=== PATIENT | female | born 1985 | race Hispanic/Latino ===

== ENCOUNTER 2020-07-26 12:52 | Outpatient (CLI) | payer OTHER | END 2020-07-26 12:53 | disposition home or self-care (01) | LOC: CSHRAD 12:52 | PROVIDERS: ATTEND Family Medicine | DX: U07.1 COVID-19 (principal); J12.82 Pneumonia due to coronavirus disease 2019 | CPT/HCPCS: 71046 ==

== ENCOUNTER 2023-05-06 18:59 | Emergency (ER) | payer SELFPAY ==
[2023-05-06 19:52] LABS: SARS-CoV-2 NAA Rapid Test Not Detected (NotDetected)
[2023-05-06] MEDS ORDERED: Tuberculin PPD 0.1 ML VIAL I-DERMAL SCH (20:00)
== END 2023-05-06 20:36 | disposition home or self-care (01) ==
LOC: CSHERS 18:59
DX: B34.9 Viral infection, unspecified (principal); J11.1 Influenza due to unidentified influenza virus with other respiratory manifestations
CPT/HCPCS: 36415; 71046; 86480; 86580

== ENCOUNTER 2023-09-09 19:16 | Emergency (ER) | payer SELFPAY | END 2023-09-09 22:05 | disposition home or self-care (01) | LOC: CSHERS 19:16 | DX: K57.31 Diverticulosis of large intestine without perforation or abscess with bleeding (principal); N83.202 Unspecified ovarian cyst, left side; N83.201 Unspecified ovarian cyst, right side | CPT/HCPCS: 36415; 74177; 80053; 81001; 81025; 83690; 84703; 85025; 87086; Q9967 ==